=== PATIENT | male | born 1980 | race American Indian/Alaskan Native ===

== ENCOUNTER 2018-01-10 14:39 | Emergency (ER) | payer BC, OTHER ==
[~2018-01-10] VITALS: Ht 188 cm; Wt 86.2 kg
== END 2018-01-10 17:18 | disposition home or self-care (01) ==
LOC: ER 14:39
DX: S01.01XA Laceration without foreign body of scalp, initial encounter (principal); S01.111A Laceration without foreign body of right eyelid and periocular area, initial encounter; Z23 Encounter for immunization; W22.8XXA Striking against or struck by other objects, initial encounter; Y99.0 Civilian activity done for income or pay
CPT/HCPCS: 12005; 12011; 90471; 90714; 99282

== ENCOUNTER 2018-12-02 07:12 | Emergency (ER) | payer OTHER, BC ==
[~2018-12-02] VITALS: Ht 188 cm; Wt 88.5 kg
[2018-12-02] MEDS ORDERED: Cephalexin500 MG PO (08:15)
== END 2018-12-02 08:58 | disposition home or self-care (01) ==
LOC: ER 07:12
DX: S61.412A Laceration without foreign body of left hand, initial encounter (principal); W26.8XXA Contact with other sharp object(s), not elsewhere classified, initial encounter
CPT/HCPCS: 12001; 99282